=== PATIENT | female | born 1950 | race Hispanic/Latino ===

== ENCOUNTER 2018-01-01 23:01 | Emergency (ER) | payer OTHER ==
[2018-01-02] MEDS ORDERED: ONDANSETRON 4 MG/2 ML VIAL ONE
[2018-01-02] MEDS ORDERED: MORPHINE 4 MG/ML SYR ONE
[2018-01-02 00:04] LABS: Absolute Lymphocytes (CBC) 0.9 K/uL (0.7-4.9); Absolute Monocytes 0.1 K/uL (0.1-1.3); Absolute Neutrophil 6.9 K/uL (1.8-8.0); Basophils % 0.4 % (0-1.3); Hematocrit 33.3 % (36.0-45.0); Lymphocytes % 11.1 % (15.3-44.8); MCV 78.8 fL (80-100); MPV 9.2 fL (7.6-11.3); Monocytes % 1.4 % (3.3-12.3); RBC Red Blood Cell Count 4.23 M/uL (3.86-4.86)
[2018-01-02 00:51] LABS: Bicarbonate 21 mEq/L (21-31); Glucose Level 169 mg/dL (65-120); Lipase 46 U/L (22-51); Potassium 3.9 mEq/L (3.6-5.0); Sodium Level 133 mEq/L (135-145)
[2018-01-02 00:57] LABS: ALT/SGPT 41 IU/L (10-60); AST/SGOT 66 IU/L (10-42); Albumin 3.9 g/dL (3.2-5.5); Alkaline Phosphatase 73 IU/L (42-121); Amylase Level 139 U/L (28-100); BUN Blood Urea Nitrogen 19 mg/dL (6-20); Bilirubin Direct 0.2 mg/dL (0-0.2); Bilirubin Total 1.1 mg/dL (0.3-1.2); Creatine Phosphokinase 57 IU/L (22-269); Glomerular Filtration Rate > 90 mL/min (=/>90); Magnesium 1.9 mg/dL (1.8-2.5); Protein, Total 6.9 g/dL (6.0-8.3)
[2018-01-02 00:59] LABS: CKMB Creatine Kinase MB 0.8 ng/ml (0.3-4.0)
[2018-01-02] MEDS ORDERED: PROMETHAZINE 25 MG/ML VIAL ONE (01:07)
[2018-01-02] MEDS ORDERED: LIDOCAINE VISCOUS 2% SOLN 15 ML UDC ONE (01:54)
[2018-01-02] MEDS ORDERED: MAGNE/ALUM HYDROXD 30 ML UCUP ONE (01:54)
[2018-01-02 03:17] LABS: Blood Morphology Comment NOT SEEN (NOT SEEN); Platelet Estimate ADEQ
[2018-01-02 04:23] LABS: Urine Blood NEGATIVE (NEG); Urine Glucose NEGATIVE (NEG); Urine Protein NEGATIVE (NEG); Urine Specific Gravity <1.005 (1.005-1.030); Urine pH 5.5 (5.0-7.0)
--- NOTE | 2018-01-02 04:30 | EDPHYS ---
Physician Documentation [facility] Name: Lynne Osorio Age: 67 yrs Sex: Female : 1950 Arrival Date: 01/01/2018 Time: 23:07 Bed 20 Private MD: ED Physician Hay Sin HPI: 01/01 23:19 This 67 yrs old Female presents to ER via EMS with complaints of Chest Pain > 30 y/o. pkl 23:19 The patient or guardian reports chest pain that is located primarily in the substernal pkl area, epigastric area. Onset: today, 8 hour(s) ago. Associated signs and symptoms: Pertinent positives: nausea, vomiting. The chest pain is described as dull. Historical: - Allergies: 23:12 PENICILLINS; bb - Home Meds: 23:12 valsartan 160 mg oral tab 1 tab once daily [Active]; montelukast 10 mg oral tab 1 tab bb once daily [Active]; - PMHx: 23:12 Hypertension; breast cancer; bb - PSHx: 23:12 Lumpectomy; Gastric Bypass; bb - Immunization history:: Adult Immunizations up to date. - Social history:: Smoking status: Patient/guardian denies using tobacco, Patient/guardian denies using alcohol, street drugs. ROS: 23:19 Eyes: Negative for injury, pain, redness, and discharge, ENT: Negative for injury, pkl pain, and discharge, Neck: Negative for injury, pain, and swelling. 23:19 Cardiovascular: Positive for chest pain. 23:19 Respiratory: Negative for cough, shortness of breath. 23:19 Abdomen/GI: Positive for nausea and vomiting. 23:19 Back: Negative for acute changes. 23:19 : Negative for urinary symptoms. 23:19 MS/extremity: Negative for acute changes. 23:19 Skin: Negative for rash. 23:19 Neuro: Negative for altered mental status. Exam: 23:19 Head/Face: Normocephalic, atraumatic. Eyes: Pupils equal round and reactive to light, pkl extra-ocular motions intact. Lids and lashes normal. Conjunctiva and sclera are non-icteric and not injected. Cornea within normal limits. Periorbital areas with no swelling, redness, or edema. ENT: Nares patent. No nasal discharge, no septal abnormalities noted. Tympanic membranes are normal and external auditory canals are clear. Oropharynx with no redness, swelling, or masses, exudates, or evidence of obstruction, uvula midline. Mucous membranes moist. Neck: Trachea midline, no thyromegaly or masses palpated, and no cervical lymphadenopathy. Supple, full range of motion without nuchal rigidity, or vertebral point tenderness. No Meningismus. Chest/axilla: Normal chest wall appearance and motion. Nontender with no deformity. No lesions are appreciated. Cardiovascular: Regular rate and rhythm with a normal S1 and S2. No gallops, murmurs, or rubs. Normal PMI, no JVD. No pulse deficits. Respiratory: Lungs have equal breath sounds bilaterally, clear to auscultation and percussion. No rales, rhonchi or wheezes noted. No increased work of breathing, no retractions or nasal flaring. Abdomen/GI: Soft, non-tender, with normal bowel sounds. No distension or tympany. No guarding or rebound. No evidence of tenderness throughout. Back: No spinal tenderness. No costovertebral tenderness. Full range of motion. Skin: Warm, dry with normal turgor. Normal color with no rashes, no lesions, and no evidence of cellulitis. MS/ Extremity: Pulses equal, no cyanosis. Neurovascular intact. Full, normal range of motion. Neuro: Awake and alert, GCS 15, oriented to person, place, time, and situation. Cranial nerves II-XII grossly intact. Motor strength 5/5 in all extremities. Sensory grossly intact. Cerebellar exam normal. Normal gait. Vital Signs: 23:12 BP 136 / 60; Pulse 66; Resp 20 S; Temp 98.0(O); Pulse Ox 100% on R/A; Weight 63.5 kg bb (R); Height 5 ft. 2 in. (157.48 cm) (R); Pain 5/10; 01/02 00:00 BP 134 / 71; Pulse 63; Resp 16; Pulse Ox 99% on R/A; lp1 00:20 BP 143 / 68; Pulse 59; Resp 15 S; Pulse Ox 99% on R/A; jd3 00:45 BP 132 / 78; Pulse 59; Resp 12; Pulse Ox 99% on R/A; lp1 01:00 BP 137 / 75; Pulse 57; Resp 15; Pulse Ox 97% on R/A; lp1 01:45 BP 128 / 68; Pulse 58; Resp 16; Pulse Ox 95% on R/A; lp1 02:30 BP 113 / 68; Pulse 60; Resp 12; Pulse Ox 98% on R/A; lp1 03:15 BP 114 / 58; Pulse 66; Resp 13; Pulse Ox 99% on R/A; lp1 04:00 BP 111 / 52; Pulse 62; Resp 15; Pulse Ox 97% on R/A; lp1 01/01 23:12 Body Mass Index 25.61 (63.50 kg, 157.48 cm) bb MDM: 01/01 23:15 Patient medically screened. pkl 01/02 04:27 Data reviewed: vital signs, nurses notes, lab test result(s), EKG, radiologic studies, pkl CT scan, plain films. 01/01 23:22 Order name: Basic Metabolic Panel; Complete Time: 01:01 pkl 01/01 23:22 Order name: BNP; Complete Time: 01:01 pkl 01/01 23:22 Order name: CBC with Diff; Complete Time: 03:54 pkl 01/01 23:22 Order name: Ckmb; Complete Time: 01:01 pkl 01/01 23:22 Order name: CPK; Complete Time: 01:01 pkl 01/01 23:22 Order name: LFT's; Complete Time: 01:01 pkl 01/01 23:22 Order name: Magnesium; Complete Time: 01:01 pkl 01/01 23:22 Order name: PT-INR; Complete Time: 01:18 pkl 01/01 23:22 Order name: Ptt, Activated; Complete Time: 01:18 pkl 01/01 23:22 Order name: Troponin (emerg Dept Use Only); Complete Time: 01:01 pkl 01/01 23:22 Order name: Amylase, Serum; Complete Time: 01:01 pkl 01/01 23:22 Order name: Lipase; Complete Time: 01:01 pkl 01/02 00:41 Order name: Manual Differential; Complete Time: 03:54 EDMS 01/02 02:56 Order name: Troponin (emerg Dept Use Only); Complete Time: 03:54 pkl 01/01 23:22 Order name: XRAY Chest (1 view) pkl 01/01 23:22 Order name: EKG; Complete Time: 23:23 pkl 01/01 23:22 Order name: Cardiac monitoring; Complete Time: 23:36 pk 01/01 23:22 Order name: EKG - Nurse/Tech; Complete Time: 23:36 pk 01/01 23:22 Order name: IV Saline Lock; Complete Time: 23:36 pkl 01/01 23:22 Order name: Labs collected and sent; Complete Time: 23:36 pk 01/01 23:22 Order name: O2 Per Protocol; Complete Time: 23:36 pkl 01/01 23:22 Order name: O2 Sat Monitoring; Complete Time: 23:36 pk 01/01 23:22 Order name: Urine Dipstick-Ancillary (obtain specimen); Complete Time: 03:43 pk 01/02 01:19 Order name: CT Abd/Pelvis - W/Contrast pk 01/02 02:56 Order name: EKG; Complete Time: 02:56 pk 01/02 03:33 Order name: Urine Dipstick--Ancillary (enter results); Complete Time: 04:24 rg2 Administered Medications: 01/01 23:59 Drug: morphine 2 mg Route: IVP; Site: left antecubital; lp1 01/02 00:54 Follow up: Response: Pain is decreased lp1 00:00 Drug: Zofran 4 mg Route: IVP; Site: left antecubital; lp1 00:53 Follow up: Response: Nausea unchanged lp1 00:53 Drug: Phenergan 12.5 mg Route: IVP; Site: left antecubital; lp1 01:39 Follow up: Response: Nausea is decreased lp1 01:39 Drug: GI Cocktail without - (Maalox Suspension 30 ml, Lidocaine Liquid 2 % 15 lp1 ml) Route: PO; 04:07 Follow up: Response: Marked relief of symptoms lp1 Disposition: 01/02/18 04:30 Discharged to Home. Impression: Chest pain. Abdominal pain. S/P cholecytectomy. - Condition is Stable. - Prescriptions for Ultram 50 mg Oral Tablet - take 1 tablet by ORAL route every 8 hours As needed; 20 tablet. Zofran 4 mg Oral Tablet - take 1 tablet by ORAL route every 12 hours As needed; 6 tablet. - Medication Reconciliation Form, Thank You Letter, Antibiotic Education, Prescription Opioid Use form. - Follow up: Pramod Mejia MD; When: 2 - 3 days; Reason: Re-evaluation by your physician. Signatures: Dispatcher [employer] EDHay Hurtado MD MD pkJacquelyn Donis, RN RN bb Melinda Ingram RN RN lp1
--- NOTE | 2018-01-02 04:30 | ER ---
Nurse's Notes [facility] Name: Lnyne Osorio Age: 67 yrs Sex: Female : 1950 Arrival Date: 01/01/2018 Time: 23:07 Bed 20 Private MD: Diagnosis: Chest pain. Abdominal pain. S/P cholecytectomy Presentation: 01/01 23:00 Presenting complaint: EMS states: they were toned out for report of pt having chest bb pain since noon then vomiting through the day greater than 10 times. Transition of care: patient was not received from another setting of care. Onset of symptoms was January 01, 2018. Care prior to arrival: Medication(s) given: ASA, 324 mg Nitroglycerin, 0.4 mg SL x 1, zofran 4 mg, IV initiated. 20 GA, in the left antecubital area, Glucose check: 170. 23:00 Method Of Arrival: EMS: [facility] bb 23:00 Acuity: TANNER 3 bb Historical: - Allergies: 23:12 PENICILLINS; bb - Home Meds: 23:12 valsartan 160 mg oral tab 1 tab once daily [Active]; montelukast 10 mg oral tab 1 tab bb once daily [Active]; - PMHx: 23:12 Hypertension; breast cancer; bb - PSHx: 23:12 Lumpectomy; Gastric Bypass; bb - Immunization history:: Adult Immunizations up to date. - Social history:: Smoking status: Patient/guardian denies using tobacco, Patient/guardian denies using alcohol, street drugs. Screenin/01 01:40 Abuse screen: Denies threats or abuse. Denies injuries from another. Nutritional lp1 screening: No deficits noted. Tuberculosis screening: No symptoms or risk factors identified. Fall Risk None identified. Assessment: 01/01 23:15 General: Appears uncomfortable, Behavior is anxious. Pain: Complains of pain in chest lp1 Pain does not radiate. Pain currently is 8 out of 10 on a pain scale. Quality of pain is described as sharp, Pain began suddenly. Neuro: Level of Consciousness is awake, alert, obeys commands, Oriented to person, place, time, situation. Cardiovascular: Capillary refill < 3 seconds in bilateral fingers toes Patient's skin is warm and dry. Rhythm is sinus rhythm. Respiratory: Respiratory effort is even, unlabored, Respiratory pattern is regular, symmetrical, Breath sounds are clear bilaterally. GI: Reports nausea. : No signs and/or symptoms were reported regarding the genitourinary system. EENT: No signs and/or symptoms were reported regarding the EENT system. Derm: Skin is pink, warm \T\ dry. Musculoskeletal: Circulation, motion, and sensation intact. 01/02 00:15 Reassessment: Patient appears in no apparent distress at this time. Patient and/or lp1 family updated on plan of care and expected duration. Pain level reassessed. Patient is alert, oriented x 3, equal unlabored respirations, skin warm/dry/pink. Patient states feeling better. 01:00 Reassessment: Patient states nausea returning at this time, burning to epigastric area; lp1 Provider notified. 01:45 Reassessment: Patient is alert, oriented x 3, equal unlabored respirations, skin lp1 warm/dry/pink. Patient states feeling better. Patient states symptoms have improved. 02:33 Reassessment: Patient appears in no apparent distress at this time. Patient returned lp1 from CT at this time, states comfortable; Aware of waiting on CT results. 03:30 Reassessment: Patient appears in no apparent distress at this time. Patient and/or lp1 family updated on plan of care and expected duration. Pain level reassessed. Patient is alert, oriented x 3, equal unlabored respirations, skin warm/dry/pink. 04:30 Reassessment: Patient appears in no apparent distress at this time. Patient is alert, lp1 oriented x 3, equal unlabored respirations, skin warm/dry/pink. Patient states feeling better. Patient states symptoms have improved. Vital Signs: 01/01 23:12 BP 136 / 60; Pulse 66; Resp 20 S; Temp 98.0(O); Pulse Ox 100% on R/A; Weight 63.5 kg bb (R); Height 5 ft. 2 in. (157.48 cm) (R); Pain 5/10; 01/02 00:00 BP 134 / 71; Pulse 63; Resp 16; Pulse Ox 99% on R/A; lp1 00:20 BP 143 / 68; Pulse 59; Resp 15 S; Pulse Ox 99% on R/A; jd3 00:45 BP 132 / 78; Pulse 59; Resp 12; Pulse Ox 99% on R/A; lp1 01:00 BP 137 / 75; Pulse 57; Resp 15; Pulse Ox 97% on R/A; lp1 01:45 BP 128 / 68; Pulse 58; Resp 16; Pulse Ox 95% on R/A; lp1 02:30 BP 113 / 68; Pulse 60; Resp 12; Pulse Ox 98% on R/A; lp1 03:15 BP 114 / 58; Pulse 66; Resp 13; Pulse Ox 99% on R/A; lp1 04:00 BP 111 / 52; Pulse 62; Resp 15; Pulse Ox 97% on R/A; lp1 01/01 23:12 Body Mass Index 25.61 (63.50 kg, 157.48 cm) bb ED Course: 01/01 23:07 Patient arrived in ED. am2 23:11 Triage completed. bb 23:12 Arm band placed on Patient placed in an exam room, on a stretcher, on dining services manager, bb on pulse oximetry. EKG completed in triage. Results shown to MD. Family accompanied patient. 23:15 Hay Sin MD is Attending Physician. pkl 23:15 Patient has correct armband on for positive identification. Placed in gown. Bed in low lp1 position. Call light in reach. dandy operator on. Pulse ox on. NIBP on. 23:15 Patient maintains SpO2 saturation greater than 95% on room air. lp1 23:15 Maintain EMS IV. Dressing intact. Good blood return noted. Site clean \T\ dry. Gauge \T\ lp 1 site: 20g to Left AC. 23:35 Melinda Ingram RN is Primary Nurse. lp1 01/02 00:53 X-ray completed. Portable x-ray completed in exam room. Patient tolerated procedure la2 well. 00:59 XRAY Chest (1 view) In Process Unspecified. EDMS 02:[address] via stretcher. bq 02:25 CT Abd/Pelvis - W/Contrast In Process Unspecified. EDMS 02:41 CT completed. Patient tolerated procedure well. Patient moved back from CT. bq 04:27 Pramod Mejia MD is Referral Physician. pkl 05:00 No provider procedures requiring assistance completed. IV discontinued, No lp1 redness/swelling at site. Pressure dressing applied. Administered Medications: 01/01 23:59 Drug: morphine 2 mg Route: IVP; Site: left antecubital; lp1 04 00:54 Follow up: Response: Pain is decreased lp1 00:00 Drug: Zofran 4 mg Route: IVP; Site: left antecubital; lp1 00:53 Follow up: Response: Nausea unchanged lp1 00:53 Drug: Phenergan 12.5 mg Route: IVP; Site: left antecubital; lp1 01:39 Follow up: Response: Nausea is decreased lp1 01:39 Drug: GI Cocktail without - (Maalox Suspension 30 ml, Lidocaine Liquid 2 % 15 lp1 ml) Route: PO; 04:07 Follow up: Response: Marked relief of symptoms lp1 Outcome: 04:30 Discharge ordered by . pkcapri 05:00 Discharged to home ambulatory, with friend. lp1 05:00 Condition: good 05:00 Discharge instructions given to patient, Instructed on discharge instructions, follow up and referral plans. medication usage, Demonstrated understanding of instructions, follow-up care, medications, Prescriptions given X 2. 05:00 Patient left the ED. lp1 Signatures: Dispatcher [employer] EDMS Hay Sin MD MD pkl Quilty, Betty bq Ballard, Brenda RN RN Melinda Canchola RN RN lp1 Luisa Mcintosh Leslie la2 Davies, Jonathon RN RN jd3 Corrections: (The following items were deleted from the chart) 01/01 23:23 23:00 Care prior to arrival: Medication(s) given: Nitroglycerin, 0.4 mg SL x 1, zofran bb 4 mg, IV initiated. 20 GA, in the left antecubital area, Glucose check: 170 bb
--- NOTE | 2018-01-02 10:09 | RAD REPORT ---
EXAM DESCRIPTION: CT - Abdomen Pelvis W Contrast - 01/02/2018 9:03 am CLINICAL HISTORY: Abdominal pain with nausea and vomiting. Epigastric pain. COMPARISON: none. TECHNIQUE: Computed axial tomography of the abdomen pelvis was obtained. 80 cc Isovue-300 was admini stered intravenously. Oral contrast was not requested which limits evaluation of bowel.A preliminary report was generated by [employer] and reviewed prior to this dictation All CT scans are performed using dose optimization technique as appropriate and may include automated exposure control or mA/KV adjustment according to patient size. FINDINGS: The gallbladder has been removed. Mild prominence of the biliary tree is present. Spleen, pancreas, and kidneys appear unremarkable. Postsurgical changes involve the stomach. A small left adrenal adenoma is suspected There is no evidence of diverticulitis. The appendix is normal. Spondylosis involves the lumbar spine resulting in marked central spinal stenosis IMPRESSION: Mild prominence of the biliary tree probably is physiologic in this patient status post cholecystectomy. This should be correlated clinically and with appropriate lab values Spondylosis involving lumbar spine resulting in marked central spinal stenosis
--- NOTE | 2018-01-02 10:56 | RAD REPORT ---
EXAM DESCRIPTION: Nuria Single View01/02/2018 12:59 am CLINICAL HISTORY: Chest pain COMPARISON: none FINDINGS: The lungs appear clear of acute infiltrate. The heart is normal size IMPRESSION: No acute abnormalities displayed
--- NOTE | 2018-01-02 12:43 | EKG ---
Test Date: 2018-01-01 Test Time: 23:03:59 Panel Coverer: KINDRA MEASUREMENT RESULTS: Intervals: Rate: 69 MD: 140 QRSD: 78 QT: 408 QTc: 437 [place]: P: 59 MD: 140 QRS: 53 T: 48 INTERPRETIVE STATEMENTS: Normal sinus rhythm Normal ECG No previous ECG available for comparison Electronically Signed On 01-02-18 12:42:33 CDT by Torrey Denton
--- NOTE | 2018-01-02 12:43 | EKG ---
Test Date: 2018-01-02 Test Time: 03:31:37 Shirt Closer: TYRELL MEASUREMENT RESULTS: Intervals: Rate: 68 NM: 128 QRSD: 80 QT: 406 QTc: 431 Corry: P: 30 NM: 128 QRS: 68 T: 43 INTERPRETIVE STATEMENTS: Normal sinus rhythm Normal ECG Compared to ECG 01/01/2018 23:03:59 No significant changes Electronically Signed On 01-02-18 12:42:24 CDT by Torrey Denton
== END 2018-01-02 05:00 | disposition home or self-care (01) ==
LOC: ER 23:01
DX: R10.9 Unspecified abdominal pain (principal); Z90.49 Acquired absence of other specified parts of digestive tract; I10 Essential (primary) hypertension; Z85.3 Personal history of malignant neoplasm of breast
CPT/HCPCS: 36415; 71045; 74177; 80048; 80076; 81003; 82150; 82550; 82553; 82962; 83690; 83735; 83880; 84484 ×2; 85025; 85610; 85730; 93005 ×2; 96374; 96375; 99285; J2405; J2550; Q9967

== ENCOUNTER 2021-07-10 14:56 | Emergency (ER) | payer OTHER ==
--- NOTE | 2021-07-10 15:42 | RAD REPORT ---
EXAM DESCRIPTION: CT - CTHCSPWOC - 07/10/2021 3:27 pm CLINICAL HISTORY: PAIN, syncope with fall, head and neck injury COMPARISON: Brain W/Wo Cont dated 08/01/2019 TECHNIQUE: Axial 5 mm thick images of the head were obtained. Axial 2 mm thick images of the cervic al spine were obtained with sagittal and coronal reconstruction images generated and reviewed. All CT scans are performed using dose optimization technique as appropriate and may include automated exposure control or mA/KV adjustment according to patient size. FINDINGS: No intracranial hemorrhage, mass, edema or acute intracranial finding. No acute cortical b ased infarction. No cortical edema or sulcal effacement. Atrophy changes are mild with ventricles in proportion. The intracranial findings are similar to 2019. Patient has moderate severity for age cement cutter jenifer ischemic change in the cerebral white matter. Empty sella configuration matches the comparison. A rterial and physiologic calcifications are present. Mastoid air cells are clear. Very minimal fluid p resent in the left maxillary sinus. Patient does have some left periorbital contusion and edema valencia e. No gross evidence for orbit or sinus wall fracture. Cervical bodies are normal in height. Slight retrolisthesis of C5 on C6 noted with prominent posterio r endplate spurring and uncovertebral joint hypertrophy. Bilateral bony foraminal encroachment change s are present. C4-5, C5-6 and C6-7 disc space narrowing present. Degenerative change present at the d ens anterior arch C1 level. Slight posterior positioning of the right lateral mass C1 relative to the C2 body matches the 2019 study. No fracture or acute bony abnormality. Advanced facet joint degenera tive change noted on the left at C3-4. C5-6 central spinal stenosis is present down to 6 mm. Central canal detail is inherently limited. No paraspinal mass or hematoma. IMPRESSION: No hemorrhage, edema or acute intracranial finding identifiable. Moderate chronic ischem ic change and mild atrophy match the 2019 study. A minimal air-fluid level is present in the left maxillary sinus with left periorbital contusion and edema changes seen. Orbit degroot sinus wall fracture on the left are not identifiable. Prominent cervical spine degenerative changes are present including significant 6 mm central spinal s tenosis at C5-6. Acute cervical spine finding is not identifiable.
--- NOTE | 2021-07-10 15:50 | ER ---
Nurse's Notes [facility] Name: Lynne Osorio Age: 70 yrs Sex: Female : 1950 Arrival Date: 07/10/2021 Time: 15:06 Bed 16 Private MD: Diagnosis: Fall on same level, unspecified;Contusion of unspecified part of head, initial encounter-left beow, forehead;Abrasion of unspecified part of head-left brow, forehead;Spinal stenosis, cervical region Presentation: 07/10 15:12 Chief complaint: EMS states: Pt tripped and fell hitting head on coffee table. Pain in ch5 neck 05/13. Pt denies blood thinners. denies LOC but saw starts. Coronavirus screen: Vaccine status: Patient reports receiving the 2nd dose of the covid vaccine. Ebola Screen: Patient negative for fever greater than or equal to 101.5 degrees Fahrenheit, and additional compatible Ebola Virus Disease symptoms Patient denies exposure to infectious person. Patient denies travel to an Ebola-affected area in the 21 days before illness onset. Initial Sepsis Screen: Does the patient meet any 2 criteria? Does the patient have a suspected source of infection? No. Patient's initial sepsis screen is negative. Risk Assessment: Do you want to hurt yourself or someone else? Patient reports no desire to harm self or others. Onset of symptoms was July 10, 2021 at 15:16. 15:12 Method Of Arrival: EMS: [facility] 5 15:12 Acuity: TANNER 2 ch5 Triage Assessment: 15:16 General: Appears uncomfortable, Behavior is calm. Pain: Pain currently is 8 out of 10 ch5 on a pain scale. Injury Description: Pt has multiple abrasions to facedue to hitting coffee table. Historical: - Immunization history:: Adult Immunizations up to date. - Social history:: Smoking status: Patient denies any tobacco usage or history of. - Family history:: not pertinent. Screenin:23 Abuse screen: Denies threats or abuse. Denies injuries from another. Nutritional ch5 screening: No deficits noted. Tuberculosis screening: No symptoms or risk factors identified. Fall Risk Fall in past 12 months (25 points). Assessment: 15:23 Reassessment: No changes from previously documented assessment. Pain: Complains of pain ch5 in left cheek and left eye Pain currently is 810 out of 10 on a pain scale. 16:12 Reassessment: No changes from previously documented assessment. C-Collar removed per Dr john Degroot. CT negative. Vital Signs: 15:12 BP 117 / 78; Pulse 77; Resp 18; Temp 98.3; Pulse Ox 100% on R/A; Weight 51.26 kg; ch5 Height 5 ft. 1 in. (154.94 cm); Pain 8/10; 15:12 Body Mass Index 21.35 (51.26 kg, 154.94 cm) 5 [place] Coma Score: 15:33 Eye Response: spontaneous(4). Verbal Response: oriented(5). Motor Response: obeys andreina commands(6). Total: 15. 15:42 Eye Response: spontaneous(4). Verbal Response: oriented(5). Motor Response: obeys andreina commands(6). Total: 15. ED Course: 15:06 Patient arrived in ED. tr6 15:11 Dany Degroot MD is Attending Physician. [facility] 15:12 Roscoe May, RN is Primary Nurse. 5 15:16 Triage completed. 5 15:23 Arm band placed on left wrist. 5 15:23 Bed in low position. Call light in reach. Side rails up X2. Adult w/ patient. 5 15:23 No provider procedures requiring assistance completed. 5 15:27 CT Head C Spine In Process Unspecified. EDMS Administered Medications: 15:52 Drug: Tetanus-Diphtheria Toxoid Adult 0.5 ml {Mine Inspector [employer]: [employer]. Exp: [facility] 02/15/2024. Lot #: [id number]. } Route: IM; Site: left deltoid; 16:00 Drug: Neosporin (hhcrrtjy-trcpgmtoph-mlbbiwvyi) Ointment 1 application Route: Topical; [facility] Site: face; 17:10 Drug: [place] (HYDROcodone-acetaminophen) (7.5 mg-325 mg) 1 tabs Route: PO; 5 17:28 Follow up: Response: No adverse reaction 5 17:10 Drug: Motrin (ibuprofen) 400 mg Route: PO; 5 17:28 Follow up: Response: No adverse reaction [facility] Outcome: 15:49 Discharge ordered by . [facility] 17:30 Discharged to home ambulatory, with family. ch5 17:30 Condition: improved 17:30 Discharge instructions given to patient, family, Instructed on discharge instructions, follow up and referral plans. safety practices, Prescriptions given X 2. 17:31 Patient left the ED. ch5 Signatures: Dispatcher [employer] Dany Lin MD MD cha Ramnanan, Tiffany, RN RN tr6 Roscoe May RN RN ch5 Corrections: (The following items were deleted from the chart) 15:16 15:16 PMHx: Hypertension; ch5 ch5 15:16 15:16 PMHx: breast cancer; ch5 ch5 17:27 17:26 Motrin (ibuprofen) 400 mg PO ch5 ch5
--- NOTE | 2021-07-10 15:50 | EDPHYS ---
Physician Documentation [facility] Name: Lynne Osorio Age: 70 yrs Sex: Female : 1950 Arrival Date: 07/10/2021 Time: 15:06 Bed 16 Private MD: ED Physician Dany Degroot HPI: 07/10 15:33 This 70 yrs old Female presents to ER via EMS with complaints of falling and andreina hitting face. 15:33 The patient or guardian reports deformity, pain, swelling, tenderness. The complaints andreina affect the forehead, left eye and left church. Context of injury: The problem was sustained at home. Onset: The symptoms/episode began/occurred just prior to arrival. Associated signs and symptoms: Loss of consciousness: This patient did not experience any loss of consciousness. Severity of symptoms: At their worst the symptoms were mild, in the emergency department the symptoms are unchanged. The patient has not experienced similar symptoms in the past. Historical: - Immunization history:: Adult Immunizations up to date. - Social history:: Smoking status: Patient denies any tobacco usage or history of. - Family history:: not pertinent. ROS: 15:33 Constitutional: Negative for fever, chills, and weight loss, Eyes: Negative for injury, andreina pain, redness, and discharge, ENT: Negative for injury, pain, and discharge, Neck: Negative for injury, pain, and swelling, Cardiovascular: Negative for chest pain, palpitations, and edema, Respiratory: Negative for shortness of breath, cough, wheezing, and pleuritic chest pain, Abdomen/GI: Negative for abdominal pain, nausea, vomiting, diarrhea, and constipation, Back: Negative for injury and pain, : Negative for injury, bleeding, discharge, and swelling, MS/Extremity: Negative for injury and deformity, Skin: Negative for injury, rash, and discoloration, Neuro: Negative for headache, weakness, numbness, tingling, and seizure, Psych: Negative for depression, anxiety, suicide ideation, homicidal ideation, and hallucinations, Allergy/Immunology: Negative for hives, rash, and allergies, Endocrine: Negative for neck swelling, polydipsia, polyuria, polyphagia, and marked weight changes, Hematologic/Lymphatic: Negative for swollen nodes, abnormal bleeding, and unusual bruising. Exam: 15:33 Constitutional: This is a well developed, well nourished patient who is awake, alert, andreina and in no acute distress. Eyes: Pupils equal round and reactive to light, extra-ocular motions intact. Lids and lashes normal. Conjunctiva and sclera are non-icteric and not injected. Cornea within normal limits. Periorbital areas with no swelling, redness, or edema. ENT: Nares patent. No nasal discharge, no septal abnormalities noted. Tympanic membranes are normal and external auditory canals are clear. Oropharynx with no redness, swelling, or masses, exudates, or evidence of obstruction, uvula midline. Mucous membranes moist. Neck: Trachea midline, no thyromegaly or masses palpated, and no cervical lymphadenopathy. Supple, full range of motion without nuchal rigidity, or vertebral point tenderness. No Meningismus. Chest/axilla: Normal chest wall appearance and motion. Nontender with no deformity. No lesions are appreciated. Cardiovascular: Regular rate and rhythm with a normal S1 and S2. No gallops, murmurs, or rubs. Normal PMI, no JVD. No pulse deficits. Respiratory: Lungs have equal breath sounds bilaterally, clear to auscultation and percussion. No rales, rhonchi or wheezes noted. No increased work of breathing, no retractions or nasal flaring. Abdomen/GI: Soft, non-tender, with normal bowel sounds. No distension or tympany. No guarding or rebound. No evidence of tenderness throughout. Back: No spinal tenderness. No costovertebral tenderness. Full range of motion. Female : Normal external genitalia. Skin: Warm, dry with normal turgor. Normal color with no rashes, no lesions, and no evidence of cellulitis. MS/ Extremity: Pulses equal, no cyanosis. Neurovascular intact. Full, normal range of motion. Neuro: Awake and alert, GCS 15, oriented to person, place, time, and situation. Cranial nerves II-XII grossly intact. Motor strength 5/5 in all extremities. Sensory grossly intact. Cerebellar exam normal. Normal gait. Psych: Awake, alert, with orientation to person, place and time. Behavior, mood, and affect are within normal limits. 15:33 Head/face: Noted is contusion, deformity, swelling, that is mild, of the forehead, left eye and left church. Vital Signs: 15:12 BP 117 / 78; Pulse 77; Resp 18; Temp 98.3; Pulse Ox 100% on R/A; Weight 51.26 kg; ch5 Height 5 ft. 1 in. (154.94 cm); Pain 8/10; 15:12 Body Mass Index 21.35 (51.26 kg, 154.94 cm) ch5 [place] Coma Score: 15:33 Eye Response: spontaneous(4). Verbal Response: oriented(5). Motor Response: obeys andreina commands(6). Total: 15. 15:42 Eye Response: spontaneous(4). Verbal Response: oriented(5). Motor Response: obeys anderina commands(6). Total: 15. MDM: 15:11 Patient medically screened. andreina 15:42 Differential diagnosis: Contusion of Hematoma on Laceration of Intracranial bleed- andreina Concussion without LOC. Data reviewed: vital signs, nurses notes, radiologic studies. 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 Counseling: I had a detailed discussion with the patient and/or guardian regarding: the historical points, exam findings, and any diagnostic results supporting the discharge/admit diagnosis, radiology results. 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 Exp: ch5 02/15/2024. Lot #: [id number]. } Route: IM; Site: left deltoid; 16:00 Drug: Neosporin (lwagwdmx-ctrjkfltgr-gmhxivbzq) Ointment 1 application Route: Topical; 5 Site: face; 17:10 Drug: [place] (HYDROcodone-acetaminophen) (7.5 mg-325 mg) 1 tabs Route: PO; 5 17:28 Follow up: Response: No adverse reaction [facility] 17:10 Drug: Motrin (ibuprofen) 400 mg Route: PO; 5 17:28 Follow up: Response: No adverse reaction 5 Disposition Summary: 07/10/21 15:49 Discharge Ordered Location: Home andreina Problem: new andreina Symptoms: have improved andreina Condition: Fair andreina Diagnosis - Fall on same level, unspecified andreina - Contusion of unspecified part of head, initial encounter - left beow, forehead andreina - Abrasion of unspecified part of head - left brow, forehead andreina - Spinal stenosis, cervical region andreina Followup: andreina - With: Private Physician - When: 2 - 3 days - Reason: Recheck today's complaints, Continuance of care, Re-evaluation by your physician Discharge Instructions: - Discharge Summary Sheet andreina - Facial or Scalp Contusion andreina - Head Injury, Adult andreina - Hematoma andreina - Hematoma, Ikec-si-Zidf andreina - Spinal Stenosis andreina - Head Injury, Adult, Daav-fj-Fsme andreina - Facial or Scalp Contusion, Mscb-uj-Coud andreina - Spinal Stenosis, Smav-pe-Bkck andreina Forms: - Medication Reconciliation Form andreina - Thank You Letter andreina - Antibiotic Education andreina - Prescription Opioid Use [facility] Prescriptions: - Motrin IB 200 mg Oral Tablet - take 2 tablet by ORAL route every 6 hours As needed as needed with food; 30 andreina tablet; Refills: 0, Product Selection Permitted - Tylenol-Codeine #3 300 mg-30 mg Oral - take 1 tablet by ORAL route every 4 hours; 15 tablet; Refills: 0, Product andreina Selection Permitted Signatures: Dispatcher [employer] Dany Lin MD MD cha Heath, Christopher, RN RN ch5 Corrections: (The following items were deleted from the chart) 15:16 15:16 PMHx: Hypertension; 5 5 15:16 15:16 PMHx: breast cancer; 5 5
[2021-07-10] MEDS ORDERED: TETANUS & DIPHTHERIA TOX,ADULT 0.5 ML VIAL ONE (16:11)
[2021-07-10] MEDS ORDERED: HYDROCODONE/APAP 7.5/325 MG TAB ONE (17:15)
[2021-07-10] MEDS ORDERED: IBUPROFEN 400 MG TAB ONE (17:21)
[2021-07-10 17:35] VITALS: BP 117/78; TEMP 98.3; O2SAT 100
== END 2021-07-10 17:31 | disposition home or self-care (01) ==
LOC: ER 14:56
DX: S00.81XA Abrasion of other part of head, initial encounter (principal); S00.212A Abrasion of left eyelid and periocular area, initial encounter; M48.02 Spinal stenosis, cervical region; W18.30XA Fall on same level, unspecified, initial encounter; Y92.009 Unspecified place in unspecified non-institutional (private) residence as the place of occurrence of the external cause; Z23 Encounter for immunization
CPT/HCPCS: 70450; 72125; 90471; 90714; 99284

== ENCOUNTER 2021-07-12 13:11 | Emergency (ER) | payer OTHER ==
--- NOTE | 2021-07-12 13:44 | RAD REPORT ---
EXAM DESCRIPTION: CT - Head Brain Wo Cont - 07/12/2021 1:37 pm CLINICAL HISTORY: recent head trauma, dizziness and blurred vision Trauma, head injury, headache COMPARISON: No comparisons TECHNIQUE: All CT scans are performed using dose optimization technique as appropriate and may inclu de automated exposure control or mA/KV adjustment according to patient size. FINDINGS: No intracranial hemorrhage, hydrocephalus or extra-axial fluid collection.Mild generalized brain atrophy is present with mild periventricular and deep white matter chronic microvascular ische slime changes.No areas of brain edema or evidence of midline shift. The paranasal sinuses and mastoids are clear. The calvarium is intact. IMPRESSION: No acute intracranial abnormality.
--- NOTE | 2021-07-12 15:15 | EDPHYS ---
Physician Documentation [facility] Name: Lynne Osorio Age: 70 yrs Sex: Female : 1950 Arrival Date: 07/12/2021 Time: 13:12 Bed 18 Private MD: ED Physician Dawit Talbot HPI: 07/12 15:09 This 70 yrs old Female presents to ER via EMS with complaints of rn Nausea/Vomiting, Vision Problem. 15:09 This 70 yrs old Female presents to ER via EMS with complaints of Headache, rn nausea/Vomiting, Vision Problem. 15:09 The patient complains of pain to the forehead. The patient describes the headache as rn aching. Onset: The symptoms/episode began/occurred 2 day(s) ago. Associated signs and symptoms: Pertinent positives: nausea, blurred vision, vomiting, Pertinent negatives: altered mental status, fever, neck stiffness. Severity of symptoms: At its worst the pain was mild, in the emergency department the pain has improved. The symptoms are alleviated by nothing. the symptoms are aggravated by lights, noise. The patient has not experienced similar symptoms in the past. The patient has been recently been admitted at [facility]. Patient recently status post head injury with observation in hospital. Negative CT at that time. Reports headache and nausea that started today. States sees a floater in left eye that looks like a butterfly flying across her vision. Denies vision loss or double vision. Left periorbital area is where she originally had her eye. No new focal neurological changes or complaints. Not on blood thinners.. Historical: - Allergies: 13:19 PENICILLINS; ss - Immunization history:: Client reports receiving the 2nd dose of the Covid vaccine. - Social history:: Smoking status: Patient denies any tobacco usage or history of. - Family history:: not pertinent. - Hospitalizations: : No recent hospitalization is reported. ROS: 15:09 Constitutional: Negative for fever, chills, and weight loss, Eyes: Positive single rn floater left eye. Denies vision loss. Neck: Negative for injury, pain, and swelling, Cardiovascular: Negative for chest pain, palpitations, and edema, Respiratory: Negative for shortness of breath, cough, wheezing, and pleuritic chest pain, Abdomen/GI: Negative for abdominal pain, diarrhea, and constipation, Back: Negative for injury and pain, MS/Extremity: Negative for injury and deformity, Skin: Negative for injury, rash, and discoloration, Neuro: Negative for weakness, numbness, tingling, and seizure. Exam: 15:09 Constitutional: This is a well developed, well nourished patient who is awake, alert, rn and in no acute distress. Head/Face: Normocephalic, healing ecchymosis to left periorbital region Eyes: Pupils equal round and reactive to light, extra-ocular motions intact. Lids and lashes normal. Conjunctiva and sclera are non-icteric and not injected. Cornea within normal limits. Neck: Supple, full range of motion without nuchal rigidity, or vertebral point tenderness. No Meningismus. Cardiovascular: Regular rate and rhythm. No pulse deficits. Skin: Warm, dry MS/ Extremity: Pulses equal, no cyanosis. Neuro: Awake and alert, GCS 15, oriented to person, place, time, and situation. Cranial nerves II-XII grossly intact. Motor strength 5/5 in all extremities. Sensory grossly intact. Cerebellar exam normal. Vital Signs: 13:12 BP 156 / 65; Pulse 66; Resp 16; Temp 98.2(TE); Pulse Ox 100% on R/A; Weight 50.8 kg; ss Height 5 ft. 0 in. (152.40 cm); Pain 4/10; 13:29 BP 125 / 68; Pulse 63; Resp 18; Pulse Ox 98% ; Pain 0/10; ch5 15:35 BP 122 / 61; Pulse 67; Resp 17; Pulse Ox 99% on R/A; tw2 13:12 Body Mass Index 21.87 (50.80 kg, 152.40 cm) [place] Coma Score: 15:09 Eye Response: spontaneous(4). Verbal Response: oriented(5). Motor Response: obeys rn commands(6). Total: 15. MDM: 13:17 Patient medically screened. rn 15:09 Differential diagnosis: intracerebral hemorrhage, migraine, traumatic injuries, rn vasomotor headache, Concussion, postconcussive syndrome, traumatic iritis, traumatic retinal problem. Data reviewed: vital signs, nurses notes, radiologic studies, CT scan, and as a result, I will discharge patient. Counseling: I had a detailed discussion with the patient and/or guardian regarding: the historical points, exam findings, and any diagnostic results supporting the discharge/admit diagnosis, radiology results, the need for outpatient follow up, to return to the emergency department if symptoms worsen or persist or if there are any questions or concerns that arise at home. Response to treatment: the patient's symptoms have mildly improved after treatment, and as a result, I will discharge patient. Special discussion: I discussed with the patient/guardian in detail that at this point there is no indication for admission to the hospital. It is understood, however, that if the symptoms persist or worsen the patient needs to return immediately for re-evaluation. Based on the history and exam findings, there is no indication for further emergent testing or inpatient evaluation. I discussed with the patient/guardian the need to see the neurologist for further evaluation of the symptoms. ED course: No acute findings on CT of the head. Will DC home with neurology follow-up for likely postconcussive symptoms. Also recommend ophthalmology follow-up to evaluate retina and traumatic findings of left eye.. 07/12 13:19 Order name: CT Head Brain wo Cont; Complete Time: 15:08 rn Administered Medications: No medications were administered Disposition Summary: 07/12/21 15:14 Discharge Ordered Location: Home rn Problem: new rn Symptoms: have improved rn Condition: Stable rn Diagnosis - Postconcussional syndrome rn - Other visual disturbances rn Followup: rn - With: Private Physician - When: As needed - Reason: Recheck today's complaints, Re-evaluation by your physician Discharge Instructions: - Discharge Summary Sheet rn - Visual Disturbances rn - Post-Concussion Syndrome rn Forms: - Medication Reconciliation Form rn - Thank You Letter rn - Antibiotic fashion patternmaker - Prescription Opioid Use rn Prescriptions: - ondansetron 4 mg Oral tablet,disintegrating - place 1 tablet by TRANSLINGUAL route every 8 hours As needed; 15 tablet; rn Refills: 0, Product Selection Permitted Signatures: Dispatcher [employer] EDMS Dawit Talbot MD MD rn Smirch, Shelby, RN RN ss
--- NOTE | 2021-07-12 15:15 | ER ---
Nurse's Notes [facility] Name: Lynne Osorio Age: 70 yrs Sex: Female : 1950 Arrival Date: 07/12/2021 Time: 13:12 Bed 18 Private MD: Diagnosis: Postconcussional syndrome;Other visual disturbances Presentation: 07/12 13:12 Chief complaint: Patient states: Fell two days ago, was admitted for observation after ss having a negative head CT and discharged home yesterday. Pt reports that since last night she has been having N/V and seeing "black spots". Coronavirus screen: Client denies travel out of the [place] in the last 14 days. Ebola Screen: Patient denies exposure to infectious person. Patient denies travel to an Ebola-affected area in the 21 days before illness onset. Initial Sepsis Screen: Does the patient meet any 2 criteria? No. Patient's initial sepsis screen is negative. Does the patient have a suspected source of infection? No. Patient's initial sepsis screen is negative. Risk Assessment: Do you want to hurt yourself or someone else? Patient reports no desire to harm self or others. Onset of symptoms was July 11, 2021. 13:12 Method Of Arrival: EMS: [facility] 13:12 Acuity: TANNER 3 ss Historical: - Allergies: 13:19 PENICILLINS; ss - Immunization history:: Client reports receiving the 2nd dose of the Covid vaccine. - Social history:: Smoking status: Patient denies any tobacco usage or history of. - Family history:: not pertinent. - Hospitalizations: : No recent hospitalization is reported. Screenin:31 Abuse screen: Denies threats or abuse. Denies injuries from another. Nutritional ch5 screening: No deficits noted. Tuberculosis screening: No symptoms or risk factors identified. Fall Risk Fall in past 12 months (25 points). Assessment: 13:24 Reassessment: No changes from previously documented assessment. General: Appears in no ch5 apparent distress. Behavior is crying, Seen here for original injury. Bruising noted to left eye.. 15:35 Reassessment: Patient appears in no apparent distress at this time. No changes from tw2 previously documented assessment. Patient and/or family updated on plan of care and expected duration. Pain level reassessed. Patient is alert, oriented x 3, equal unlabored respirations, skin warm/dry/pink. Vital Signs: 13:12 BP 156 / 65; Pulse 66; Resp 16; Temp 98.2(TE); Pulse Ox 100% on R/A; Weight 50.8 kg; ss Height 5 ft. 0 in. (152.40 cm); Pain 4/10; 13:29 BP 125 / 68; Pulse 63; Resp 18; Pulse Ox 98% ; Pain 0/10; ch5 15:35 BP 122 / 61; Pulse 67; Resp 17; Pulse Ox 99% on R/A; tw2 13:12 Body Mass Index 21.87 (50.80 kg, 152.40 cm) ss [place] Coma Score: 15:09 Eye Response: spontaneous(4). Verbal Response: oriented(5). Motor Response: obeys rn commands(6). Total: 15. ED Course: 13:12 Patient arrived in ED. ss 13:12 Maintain EMS IV. Dressing intact. Good blood return noted. Site clean \\T\\ dry. Gauge \\T\\ tw 2 site: 20 RIGHT ac. 13:17 Dawit Talbot MD is Attending Physician. rn 13:19 Triage completed. ss 13:19 Arm band placed on right wrist. ss 13:24 Roscoe May RN is Primary Nurse. ch5 13:31 Bed in low position. Call light in reach. Side rails up X2. ch5 13:32 No provider procedures requiring assistance completed. ch5 13:37 CT Head Brain wo Cont In Process Unspecified. EDMS 15:35 IV discontinued, intact, bleeding controlled, No redness/swelling at site. Pressure tw2 dressing applied. Administered Medications: No medications were administered Outcome: 15:14 Discharge ordered by . rn 15:35 Discharged to home via wheelchair, with family. tw2 15:35 Condition: stable 15:35 Discharge instructions given to patient, family, Instructed on discharge instructions, follow up and referral plans. medication usage, Demonstrated understanding of instructions, follow-up care, medications, Prescriptions given X 1. 15:36 Patient left the ED. tw2 Signatures: Dispatcher [employer] EDMS Dawit Talbot MD MD rn Smirch, Shelby, RN RN Lorena Keith RN RN 2 Roscoe May RN RN ch5
[2021-07-12 15:40] VITALS: TEMP 98.2
[2021-07-12 15:43] VITALS: BP 122/61; O2SAT 99
== END 2021-07-12 15:36 | disposition home or self-care (01) ==
LOC: ER 13:11
DX: F07.81 Postconcussional syndrome (principal); H53.8 Other visual disturbances; Z88.0 Allergy status to penicillin
CPT/HCPCS: 70450; 99283